=== PATIENT | female | born 1995 | race Caucasian/White ===

== ENCOUNTER 2018-08-05 00:24 | Emergency (ER) | payer SELFPAY ==
[~2018-08-05] VITALS: Ht 154.9 cm; Wt 59.0 kg
[2018-08-05] MEDS ORDERED: LORAZEPAM 1 MG TABLET PO ONE (01:00)
[2018-08-05] MEDS ORDERED: LORAZEPAM 1 MG TABLET ONE (01:10)
[2018-08-05 01:17] LABS: BASOPHILS % (AUTO) 1.1 % (0.0-2.0); EOSINOPHILS % (AUTO) 0.1 % (0.0-6.0); HEMATOCRIT 40 % (33-45); HEMOGLOBIN 13.5 g/dL (11.5-14.8); LYMPHOCYTES % (AUTO) 25.4 % (20.0-44.0); MEAN CORPUSCULAR HGB CONC 34 g/dl (31.0-36.0); MEAN CORPUSCULAR VOLUME 93 fL (82-100); MONOCYTES % (AUTO) 3.6 % (2.0-12.0); NEUTROPHILS % (AUTO) 69.8 % (43.0-81.0); PLATELET COUNT (AUTO) 221 /CMM (150-450); RED BLOOD CELL COUNT(AUTO) 4.28 MIL/uL (4.0-5.2); WHITE BLOOD COUNT (AUTO) 7.8 K/uL (4.3-11.0)
[2018-08-05 01:18] LABS: BASOPHILS # (AUTO) 0.1 /CMM (0.0-0.2); MONOCYTES # (AUTO) 0.3 /CMM (0.1-1.30); NEUTROPHILS # (AUTO) 5.4 /CMM (1.8-8.9)
--- NOTE | 2018-08-05 02:02 | NUR ---
XRAY IN PROGRESS
[2018-08-05] MEDS ORDERED: IBUPROFEN 400 MG TABLET ONE (02:25)
[2018-08-05] MEDS ORDERED: IBUPROFEN 400 MG TABLET PO ONE (02:30)
[2018-08-05 02:50] VITALS: BP 111/64
== END 2018-08-05 02:52 | disposition home or self-care (01) ==
LOC: ER 00:28
DX: F41.9 Anxiety disorder, unspecified (principal); R06.02 Shortness of breath
CPT/HCPCS: 36415; 71045-TC; 84703-TC; 85025-TC